=== PATIENT | male | born 1990 | race Caucasian/White ===

== ENCOUNTER 2017-05-01 09:14 | Emergency (ER) | payer SELFPAY ==
[~2017-05-01] VITALS: Ht 172.7 cm; Wt 79.0 kg
[~2017-05-01 09:14] MED LIST: PEN500 PO
[2017-05-01 09:17] VITALS: Ht 172.7 cm; Wt 79.0 kg
== END 2017-05-01 11:30 | disposition left against medical advice (07) ==
LOC: FTE 09:14
DX: Z53.21 Procedure and treatment not carried out due to patient leaving prior to being seen by health care provider (principal)

== ENCOUNTER 2019-01-16 21:12 | Emergency (ER) | payer OTHER ==
[~2019-01-16] VITALS: Ht 175.3 cm; Wt 76.3 kg
[~2019-01-16 21:12] MED LIST changes: -PEN500 PO; +PENI500T PO
[2019-01-16 21:15] VITALS: Ht 175.3 cm; Wt 76.3 kg
[2019-01-16] MEDS ORDERED: LIDOCAINE 1% (MDV) 10 ML INJ INJ STA (21:41)
[2019-01-16] MEDS ORDERED: DIPHTH/TET/ACEL PERTUSS (ADULT) 0.5 ML VIAL IM* ONE (22:00)
[2019-01-16] MEDS ORDERED: LIDOCAINE 1% (MDV) 20 ML INJ INJ STA (22:48)
[2019-01-16] MEDS ORDERED: HYDR-4011 PO (23:31)
[2019-01-17 00:06] VITALS: BP 122/77; PULSE 73; RESP 18
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
== END 2019-01-17 00:08 | disposition home or self-care (01) ==
LOC: FTE 21:12
DX: S02.2XXA Fracture of nasal bones, initial encounter for closed fracture (principal); S01.111A Laceration without foreign body of right eyelid and periocular area, initial encounter; F17.210 Nicotine dependence, cigarettes, uncomplicated; Y04.8XXA Assault by other bodily force, initial encounter; Z23 Encounter for immunization
CPT/HCPCS: 12013; 70486; 90471; 90715; Z7502; Z7610

== ENCOUNTER 2019-01-23 15:12 | Emergency (ER) | payer SELFPAY ==
[~2019-01-23] VITALS: Wt 74.2 kg
[~2019-01-23 15:12] MED LIST changes: +HYDR-4011 PO
[2019-01-23 15:14] VITALS: BP 115/71; PULSE 106; RESP 18
== END 2019-01-23 16:59 | disposition left against medical advice (07) ==
LOC: FTE 15:12
DX: Z53.21 Procedure and treatment not carried out due to patient leaving prior to being seen by health care provider (principal)